=== PATIENT | female | born 1935 | race Caucasian/White ===

== ENCOUNTER 2018-09-09 11:54 | Inpatient (IN) | payer OTHER, MEDICAID ==
[~2018-09-09] VITALS: Ht 157.5 cm; Wt 54.1 kg
[~2018-09-09 11:54] MED LIST: ASPI81TA45 PO; ATOR10TA9 PO; ATOR40TA78 PO; CARV6.2512 PO; CELE50CA PO; CHOL100012 PO; CYCL1DRO EACHEYE; DEXL60CA2 PO; FLUT9.9S16 NAS; HYDR2TAB29 PO; INSU100V8 SQ; L. A1POW4 PO; LEVO5TAB29 PO; LEVO75TA PO; LINA5TAB PO; LOSA25TA25 PO; LOSA50TA14 PO; LOSA50TA2 PO; MAGN400T26 PO; MAGN400T7 PO; MEMA5TAB PO; METF500T17 PO; ONDA4TAB10 PO; POLY17PO5 PO; PREG150C PO; ROPI0.5T PO
[2018-09-09] MEDS ORDERED: METO25TA35 PO (12:31)
[2018-09-09] MEDS ORDERED: OXYC1TAB7 PO (12:31)
[2018-09-09] MEDS ORDERED: RIVA20TA PO (12:31)
[2018-09-09] MEDS ORDERED: ATOR-2 PO (12:31)
[2018-09-09] MEDS ORDERED: ROPI0.5T2 PO (12:31)
[2018-09-09] MEDS ORDERED: AMLO5TAB4 PO (12:31)
--- NOTE | 2018-09-09 12:51 | NUR ---
TASK RN: DR MACEDO AT BEDSIDE, PT ASSESSMENT POC DISCUSSED AND QUESTIONS ANSWERED. PT STATES THAT SHE HAS BEEN TOO WEAK AND IN TOO MUCH PAIN TO GET OOB AT HOME. SHE HAS A CARGIVER WHO COMES DAILY FOR 2 HRS AND IS VISITED BY HOME HEALTH RN FROM [facility]. HOME HEALTH VISIT TODAY AND THE RN WANTED PT TO GO TO HOSPITAL FOR INABLILTY TO CARE FOR SELF AT HOME.
[2018-09-09] MEDS ORDERED: SODIUM CHLORIDE FLUSH 10ML SYR IVF ONE (13:00)
[2018-09-09 13:16] LABS: BASOPHILS # (AUTO) 0.03 x10^3/uL (0-0.1); BASOPHILS % (AUTO) 1 % (0-1); EOSINOPHILS # (AUTO) 0.05 x10^3/uL (0-0.4); EOSINOPHILS % (AUTO) 1 % (1-7); LYMPHOCYTES % (AUTO) 25 % (22-44); MD NO; MEAN CORPUSCULAR HEMOGLOBIN 31.5 pg (27.0-34.8); MEAN CORPUSCULAR HGB CONC 33.2 g/dL (32.4-35.8); MEAN CORPUSCULAR VOLUME 94.8 fL (80-100); MONOCYTES # (AUTO) 0.29 x10^3/uL (0.2-0.8); MONOCYTES % (AUTO) 7 % (2-9); NEUTROPHILS # (AUTO) 2.56 x10^3/uL (1.8-6.8); NEUTROPHILS % (AUTO) 65 % (42-75); PLATELET COUNT 252 x10^3/uL (130-400); RED BLOOD COUNT 3.13 x10^6/uL (3.82-5.3)
[2018-09-09 13:29] LABS: ALANINE AMINOTRANSFERASE 10 U/L (12-78); ALBUMIN 3.6 g/dL (3.4-5.0); ANION GAP 11 mmol/L (5-15); CALCIUM 8.9 mg/dL (8.5-10.1); CHLORIDE 99 mmol/L (98-107)
[2018-09-09 13:31] LABS: ALKALINE PHOSPHATASE 50 U/L (45-117); BILIRUBIN,TOTAL 0.4 mg/dL (0.2-1.0); CREATININE 1.37 mg/dL (0.55-1.02); TOTAL PROTEIN 7.5 g/dL (6.4-8.2)
--- NOTE | 2018-09-09 13:32 | NUR ---
transfer denied per [facility] (Radha) & [facility] (Pat).
[2018-09-09 13:48] LABS: MICROSCOPIC AUTO
[2018-09-09 13:49] LABS: CULTURE INDICATED? YES
[2018-09-09] MEDS ORDERED: OXYcodone/APAP 5/325MG TABLET ONE (13:58)
[2018-09-09] MEDS ORDERED: OXYcodone/APAP 5/325MG TABLET PO ONE (14:00)
[2018-09-09] MEDS ORDERED: ROPINIROLE 1MG TABLET PO ONE (14:00)
[2018-09-09] MEDS: SODIUM CHLORIDE 0.9% 1,000 ML IV SCH (14:53)
[2018-09-09] MEDS ORDERED: DEXTROSE 50%, 50ML SYRINGE IVPush PRN (15:00)
[2018-09-09] MEDS ORDERED: ONDANSETRON 2MG/ML, 2ML IVPush PRN (15:00)
[2018-09-09] MEDS ORDERED: ACETAMINOPHEN 325 MG TABLET PO PRN (15:00)
[2018-09-09] MEDS ORDERED: DEXTROSE 4 GM TAB.CHEW PO PRN (15:00)
[2018-09-09] MEDS ORDERED: hydrALAzine 20 MG/ML, 1ML IVPush PRN (15:00)
[2018-09-09] MEDS ORDERED: GLUCAGON 1 MG IM PRN (15:00)
[2018-09-09] MEDS ORDERED: morphine SULFATE 10 MG/ML, 1ML IVPush PRN (15:00)
--- NOTE | 2018-09-09 16:33 | NUR ---
Pt resting in bed. Given warm blankets and water. Denies any further needs or concerns. IV infusing without issue.
--- NOTE | 2018-09-09 17:02 | NUR ---
Pt transferred to a hospital bed, without issue. Dinner tray provided. Denies any further needs or concerns at this time.
--- NOTE | 2018-09-09 17:09 | NUR ---
Pt BS 93, no need for insulin coverage.
[2018-09-09] MEDS ORDERED: RIVAROXABAN 10 MG TABLET ONE (17:51)
[2018-09-09] MEDS ORDERED: RIVAROXABAN 20 MG TABLET ONE (17:54)
[2018-09-09] MEDS: RIVAROXABAN 20 MG TABLET PO SCH (17:55)
--- NOTE | 2018-09-09 17:57 | NUR ---
Pt resting in bed, eyes closed, easily arouses to verbal stimulation. Assisted with repositioning. Denies any further needs or concerns at this time. Call light in reach.
[2018-09-09] MEDS ORDERED: MORPHINE SULFATE 4 MG/ML, 1ML ONE (18:56)
--- NOTE | 2018-09-09 19:02 | NUR ---
PT MEDICATED FOR COMPLAINT OF 10/10 PAIN. POC DISCUSSED. PT DENIES FURTHER NEEDS AT THIS TIME
--- NOTE | 2018-09-09 20:27 | NUR ---
PT READJUSTED MULTIPLE TIMES. PT [employer]ALTH [employer] LIGHT FREQUENTLY. PT STATING HER PAIN IS NOT CONTROLLED AND THAT SHE NORMALLY TAKES OXYCODONE Q6H. PT WAS INFORMED OF THE MEDS ORDERED AND THE FREQUENCY THEY CAN BE GIVEN. POC DISCUSSED. PT DENIES FURTHER NEEDS AT THIS TIME.
[2018-09-09] MEDS: INSULIN LISPRO 100 UNITS/ML, PEN SQ-INSULIN SCH ×2 (21:00→21:18)
[2018-09-09] MEDS: SODIUM CHLORIDE FLUSH 10ML SYR IVF SCH (21:00)
[2018-09-09] MEDS ORDERED: ROPINIROLE 0.5MG TABLET PO SCH (21:00)
[2018-09-09] MEDS ORDERED: ATORVASTATIN 80 MG TABLET PO SCH (21:00)
[2018-09-09] MEDS ORDERED: METOPROLOL TARTRATE 25 MG TABLET ONE (21:02)
[2018-09-09] MEDS ORDERED: INSULIN LISPRO 100 UNITS/ML, PEN ONE (21:03)
[2018-09-09] MEDS ORDERED: HYDROcodone/APAP 5/325 TABLET ONE (21:04)
[2018-09-09] MEDS: HYDROcodone/APAP 5/325 TABLET PO PRN (21:07)
[2018-09-09] MEDS: ATORVASTATIN 10 MG TABLET PO SCH (21:07)
[2018-09-09] MEDS: MEMANTINE 5MG TABLET PO SCH (21:07)
[2018-09-09] MEDS: METOPROLOL TARTRATE 25 MG TABLET PO SCH (21:07)
[2018-09-09] MEDS: PREGABALIN 150 MG CAPSULE PO SCH (21:07)
[2018-09-09 22:32] VITALS: BP 122/55
[2018-09-10] MEDS: HYDROcodone/APAP 5/325 TABLET PO PRN ×2 (01:27→06:15)
[2018-09-10] MEDS: SODIUM CHLORIDE 0.9% 1,000 ML IV SCH ×3 (01:28→20:23)
[2018-09-10 02:21] VITALS: BP 136/59
[2018-09-10 06:01] LABS: BASOPHILS # (AUTO) 0.03 x10^3/uL (0-0.1); BASOPHILS % (AUTO) 1 % (0-1); EOSINOPHILS # (AUTO) 0.14 x10^3/uL (0-0.4); EOSINOPHILS % (AUTO) 4 % (1-7); LYMPHOCYTES # (AUTO) 1.63 x10^3/uL (1-3.4); LYMPHOCYTES % (AUTO) 50 % (22-44); MD NO; MEAN CORPUSCULAR HEMOGLOBIN 30.6 pg (27.0-34.8); MEAN CORPUSCULAR HGB CONC 32.7 g/dL (32.4-35.8); MEAN CORPUSCULAR VOLUME 93.6 fL (80-100); MONOCYTES % (AUTO) 12 % (2-9); NEUTROPHILS # (AUTO) 1.07 x10^3/uL (1.8-6.8); NEUTROPHILS % (AUTO) 33 % (42-75); PLATELET COUNT 215 x10^3/uL (130-400); RED BLOOD COUNT 2.95 x10^6/uL (3.82-5.3); RED CELL DISTRIBUTION WIDTH 14.8 % (9.6-15.2)
[2018-09-10 06:10] LABS: ANION GAP 7 mmol/L (5-15); CALCIUM 8.5 mg/dL (8.5-10.1); CHLORIDE 105 mmol/L (98-107); CREATININE 1.05 mg/dL (0.55-1.02)
[2018-09-10] MEDS: PANTOPROZOLE 40MG TABLET PO SCH (06:15)
[2018-09-10] MEDS: LEVOTHYROXINE 75 MCG TABLET PO SCH (06:15)
[2018-09-10 06:20] LABS: THYROID STIMULATING HORMONE 0.765 mIU/L (0.358-3.740)
[2018-09-10] MEDS: INSULIN LISPRO 100 UNITS/ML, PEN SQ-INSULIN SCH ×4 (06:20→20:24)
[2018-09-10 07:58] VITALS: BP 141/66
[2018-09-10] MEDS: SODIUM CHLORIDE FLUSH 10ML SYR IVF SCH ×2 (09:00→20:24)
[2018-09-10] MEDS: MAGNESIUM OXIDE 400 MG TABLET PO SCH (09:00)
[2018-09-10] MEDS: AMLODIPINE 5 MG TABLET PO SCH (09:00)
[2018-09-10] MEDS: PREGABALIN 150 MG CAPSULE PO SCH ×2 (09:00→20:22)
[2018-09-10] MEDS: METOPROLOL TARTRATE 25 MG TABLET PO SCH ×2 (09:00→20:37)
[2018-09-10] MEDS: MEMANTINE 5MG TABLET PO SCH ×2 (09:00→20:22)
[2018-09-10] MEDS: LEVOCETIRIZINE 5 MG TAB PO SCH (09:01)
[2018-09-10] MEDS: SENNA/DOCUSATE TABLET PO SCH (09:01)
[2018-09-10] MEDS: OXYcodone/APAP 7.5/325MG TABLET PO PRN ×3 (11:11→23:32)
[2018-09-10] MEDS: FLUTICASONE NASAL SPRAY 16GM NAS SCH (11:11)
[2018-09-10] MEDS: ACETAMINOPHEN 500 MG TABLET PO SCH ×3 (11:11→23:32)
[2018-09-10 13:59] VITALS: BP 101/44
[2018-09-10] MEDS ORDERED: ROPINIROLE 0.5MG TABLET ONE (16:59)
[2018-09-10] MEDS: RIVAROXABAN 20 MG TABLET PO SCH (17:07)
[2018-09-10] MEDS: ROPINIROLE 0.5MG TABLET PO SCH ×2 (17:08→21:00)
[2018-09-10 19:08] VITALS: BP 102/63
[2018-09-10] MEDS: ATORVASTATIN 10 MG TABLET PO SCH (20:22)
[2018-09-11 01:03] VITALS: BP 139/68
[2018-09-11] MEDS: PANTOPROZOLE 40MG TABLET PO SCH (05:16)
[2018-09-11] MEDS: ACETAMINOPHEN 500 MG TABLET PO SCH ×3 (05:16→16:48)
[2018-09-11] MEDS: ROPINIROLE 0.5MG TABLET PO SCH (05:16)
[2018-09-11] MEDS: OXYcodone/APAP 7.5/325MG TABLET PO PRN ×3 (05:17→16:48)
[2018-09-11] MEDS: LEVOTHYROXINE 75 MCG TABLET PO SCH (05:17)
[2018-09-11 05:22] LABS: ANION GAP 4 mmol/L (5-15); CALCIUM 8.4 mg/dL (8.5-10.1); CHLORIDE 110 mmol/L (98-107)
[2018-09-11 05:24] LABS: BASOPHILS # (AUTO) 0.02 x10^3/uL (0-0.1); BASOPHILS % (AUTO) 1 % (0-1); CREATININE 0.82 mg/dL (0.55-1.02); EOSINOPHILS # (AUTO) 0.14 x10^3/uL (0-0.4); EOSINOPHILS % (AUTO) 4 % (1-7); LYMPHOCYTES # (AUTO) 1.62 x10^3/uL (1-3.4); LYMPHOCYTES % (AUTO) 46 % (22-44); MD NO; MEAN CORPUSCULAR HEMOGLOBIN 31.1 pg (27.0-34.8); MEAN CORPUSCULAR HGB CONC 32.5 g/dL (32.4-35.8); MEAN CORPUSCULAR VOLUME 95.8 fL (80-100); MEAN PLATELET VOLUME 7.1 fL (7.4-10.4); MONOCYTES # (AUTO) 0.31 x10^3/uL (0.2-0.8); MONOCYTES % (AUTO) 9 % (2-9); NEUTROPHILS # (AUTO) 1.42 x10^3/uL (1.8-6.8); NEUTROPHILS % (AUTO) 41 % (42-75); PLATELET COUNT 229 x10^3/uL (130-400); RED BLOOD COUNT 2.94 x10^6/uL (3.82-5.3); RED CELL DISTRIBUTION WIDTH 15.2 % (9.6-15.2)
[2018-09-11] MEDS: INSULIN LISPRO 100 UNITS/ML, PEN SQ-INSULIN SCH ×3 (06:17→16:00)
[2018-09-11 07:30] VITALS: BP 146/68
[2018-09-11] MEDS: SODIUM CHLORIDE FLUSH 10ML SYR IVF SCH (07:57)
[2018-09-11] MEDS: FLUTICASONE NASAL SPRAY 16GM NAS SCH (07:57)
[2018-09-11] MEDS: AMLODIPINE 5 MG TABLET PO SCH (07:58)
[2018-09-11] MEDS: PREGABALIN 150 MG CAPSULE PO SCH (07:58)
[2018-09-11] MEDS: METOPROLOL TARTRATE 25 MG TABLET PO SCH (07:58)
[2018-09-11] MEDS: MAGNESIUM OXIDE 400 MG TABLET PO SCH (07:58)
[2018-09-11] MEDS: MEMANTINE 5MG TABLET PO SCH (07:58)
[2018-09-11] MEDS: SENNA/DOCUSATE TABLET PO SCH (07:59)
[2018-09-11] MEDS: LEVOCETIRIZINE 5 MG TAB PO SCH (07:59)
[2018-09-11 09:19] LABS: OCCULT BLOOD NEGATIVE (NEGATIVE)
[2018-09-11] MEDS ORDERED: ROPINIROLE 0.5MG TABLET PO PRN (11:00)
[2018-09-11] MEDS ORDERED: OXYC1TAB8 PO (11:10)
[2018-09-11] MEDS ORDERED: ACET500T71 PO (11:10)
[2018-09-11] MEDS ORDERED: SENN-177 PO (11:10)
[2018-09-11 13:35] VITALS: BP 137/64
[2018-09-11] MEDS: RIVAROXABAN 20 MG TABLET PO SCH (16:47)
== END 2018-09-11 17:00 | DRG 640 ==
LOC: ED 13:14 → EDIP 13:53 → 4NOR 22:05
PROVIDERS: ADMIT Internal Medicine; ATTEND Internal Medicine
PROC: 0T9B70Z Drainage of Bladder with Drainage Device, Via Natural or Artificial Opening (ICD-10-PCS; principal; 2018-09-09)
DX: R62.7 Adult failure to thrive (principal); N17.0 Acute kidney failure with tubular necrosis; D68.69 Other thrombophilia; F11.20 Opioid dependence, uncomplicated; J96.11 Chronic respiratory failure with hypoxia; E86.0 Dehydration; Z66 Do not resuscitate; D64.9 Anemia, unspecified; E11.9 Type 2 diabetes mellitus without complications; E03.9 Hypothyroidism, unspecified; E78.5 Hyperlipidemia, unspecified; F03.90 Unspecified dementia, unspecified severity, without behavioral disturbance, psychotic disturbance, mood disturbance, and anxiety; G25.81 Restless legs syndrome; G89.29 Other chronic pain; I10 Essential (primary) hypertension; I25.10 Atherosclerotic heart disease of native coronary artery without angina pectoris; I48.91 Unspecified atrial fibrillation; K21.9 Gastro-esophageal reflux disease without esophagitis; M41.9 Scoliosis, unspecified; M51.36 Other intervertebral disc degeneration, lumbar region; R32 Unspecified urinary incontinence; Z79.01 Long term (current) use of anticoagulants; Z87.891 Personal history of nicotine dependence; Z98.61 Coronary angioplasty status
CPT/HCPCS: 36415; 72100; 80048; 80053; 81001; 82272; 82728; 82962; 83540; 83550; 84443; 84466; 85025; 87086; 96361; 96374; G0378; J2270; J7030